=== PATIENT | male | born 1970 | race Caucasian/White ===

== ENCOUNTER 2016-05-15 10:15 | Emergency (ER) | payer SELFPAY ==
[~2016-05-15] VITALS: Ht 190.5 cm; Wt 88.5 kg
[2016-05-15] MEDS ORDERED: [UNRECOGNIZED DRUG - OTHER] (10:25)
[2016-05-15] MEDS ORDERED: DEXAMETHASONE SOD PHOSPHATE 10 MG/ML VIAL ONE (10:34)
[2016-05-15] MEDS ORDERED: KETOROLAC TROMETHAMINE INJ 30 MG/ML VIAL ONE (10:34)
[2016-05-15 10:53] VITALS: BP 136/96
[2016-05-15] MEDS ORDERED: DEXAMETHASONE SOD PHOSPHATE 10 MG/ML VIAL IM ONE (11:00)
[2016-05-15] MEDS ORDERED: KETOROLAC TROMETHAMINE INJ 60 MG/2 ML VIAL IM ONE (11:00)
== END 2016-05-15 10:54 | disposition home or self-care (01) ==
LOC: ER 10:18
DX: I88.9 Nonspecific lymphadenitis, unspecified (principal)
CPT/HCPCS: A4606; J1100; J1885; Z7610